=== PATIENT | male | born 1960 | race Caucasian/White ===

== ENCOUNTER 2019-09-26 06:45 | Emergency (ER) | payer OTHER ==
[~2019-09-26] VITALS: Ht 195.6 cm; Wt 101.2 kg
[2019-09-26] MEDS ORDERED: MOTRIN IB200 MG PO (06:54)
[2019-09-26] MEDS ORDERED: ACETAMINOPHEN500 MG PO (06:55)
[2019-09-26] MEDS ORDERED: NORCO 5-325 TA1 EACH PO ×2 (07:26→07:30)
[2019-09-26] MEDS ORDERED: KEFLEX500 MG PO ×2 (07:26→07:30)
== END 2019-09-26 07:34 | disposition home or self-care (01) ==
LOC: ED 06:45
DX: L03.031 Cellulitis of right toe (principal); R58 Hemorrhage, not elsewhere classified
CPT/HCPCS: 99283